=== PATIENT | female | born 1985 | race African-American/Black ===

== ENCOUNTER 2017-02-02 13:11 | Emergency (ER) | payer SELFPAY ==
[~2017-02-02] VITALS: Ht 170.2 cm; Wt 58.0 kg
[2017-02-02 13:14] VITALS: BP 137/69; PULSE 81; RESP 18; TEMP 97.4; O2SAT 98
--- NOTE | 2017-02-02 14:41 | PD ---
HPI Chief Complaint: Psychiatric Symptoms Time Seen by Provider: 14:06 Travel History International Travel<30 days: No Contact w/Intl Traveler<30days: No Traveled to known affect area: No History of Present Illness HPI This is a 31-year-old female that was apparently brought in by her family for psychiatric evaluation. According to the triage note,"Pt presents for a psych evaluation. She states she is off her medications. Pt is agitated, family states she is "going crazy". Hx of mental illness, suicide attempt. Family reports hallucinations. Talks to herself, reaches for things that aren't there. Pt has a hx of schizophrenia. She denies suicidality now." I evaluated the patient and she denies suicidal or homicidal ideations. Denies auditory or visual hallucinations. Denies illicit drug use. Reports occasional alcohol use and occasional tobacco use. History of schizophrenia. Says she's been off her medications for 2 months. Says she's been having trouble concentrating and cannot focus and she wants to get back on her medications. She has no emergent medical complaints at this time. No known relieving or aggravating factors. Duration unknown. No primary care provider. No other modifying factors or associated signs and symptoms. PFSH Past Medical History Medical History: Denies Significant Hx Diminished Hearing: No Immunizations Current: Yes Tetanus Vaccination: > 5 Years Influenza Vaccination: No ?: Not LMP: at end of month per patient Menopausal: No : 0 Past Surgical History Surgical History: No Previous Surgery Social History Alcohol Use: Yes (1 beer or a glass of wine on weekend occassionally) Tobacco Use: No Substance Use: No Allergies-Medications (Allergen,Severity, Reaction): Coded Allergies: No Known Allergies (Verified Allergy, Unknown, 02/02/17) Per Patient Reported Meds & Prescriptions Reported Meds & Active Scripts Active Vistaril (Hydroxyzine Pamoate) 50 Mg Cap 50 Mg PO BID 14 Days Review of Systems Except as stated in HPI: all other systems reviewed are Neg Physical Exam Narrative GENERAL: Well-nourished, well-developed black female patient, in no acute distress SKIN: Warm and dry. HEAD: Atraumatic. Normocephalic. EYES: Pupils equal and round. ENT: Mucosa pink and moist. NECK: Supple. Trachea midline. CARDIOVASCULAR: Regular rate and rhythm. No murmur appreciated. RESPIRATORY: No accessory muscle use. Clear to auscultation. Breath sounds equal bilaterally. GASTROINTESTINAL: Abdomen soft, non-tender, nondistended. Hepatic and splenic margins not palpable. Bowel sounds are active 4 quadrants. MUSCULOSKELETAL: No obvious deformities. No clubbing. No cyanosis. No edema. BACK: No CVA tenderness. NEUROLOGICAL: Awake and alert. Oriented 3. No obvious cranial nerve deficits. Motor grossly within normal limits. Normal speech. Moves all extremities. 5/5 strength to all extremities. PSYCHIATRIC: Flat affect. No delusional thought processes. No hallucinations. Data Data Last Documented VS Vital Signs Date Time Temp Pulse Resp B/P (MAP) Pulse Ox O2 Delivery O2 Flow Rate FiO2 02/02/17 20:27 02/02/17 17:20 73 20 Room Air 02/02/17 13:14 97.4 98 Orders Orders Complete Blood Count With Diff (02/02/17 14:05) Comprehensive Metabolic Panel (02/02/17 14:05) Urinalysis - C+S If Indicated (02/02/17 14:05) Ed Urine Pregnancytest Poc (02/02/17 14:05) Psych Screen (02/02/17 14:05) Drug Screen, Random Urine (02/02/17 14:05) Alcohol (Ethanol) (02/02/17 14:05) Salicylates (Aspirin) (02/02/17 14:05) Tylenol (Acetaminophen) (02/02/17 14:05) Diet Regular Basic (02/02/17 Dinner) Ed Discharge Order (02/02/17 20:04) Labs Laboratory Tests Test 02/02/17 15:10 02/02/17 19:10 White Blood Count 8.6 TH/MM3 Red Blood Count 5.27 MIL/MM3 Hemoglobin 11.6 GM/DL Hematocrit 35.7 % Mean Corpuscular Volume 67.8 FL Mean Corpuscular Hemoglobin 22.1 PG Mean Corpuscular Hemoglobin Concent 32.6 % Red Cell Distribution Width 15.8 % Platelet Count 184 TH/MM3 Mean Platelet Volume 10.1 FL Neutrophils (%) (Auto) 56.3 % Lymphocytes (%) (Auto) 29.6 % Monocytes (%) (Auto) 11.4 % Eosinophils (%) (Auto) 2.2 % Basophils (%) (Auto) 0.5 % Neutrophils # (Auto) 4.8 TH/MM3 Lymphocytes # (Auto) 2.5 TH/MM3 Monocytes # (Auto) 1.0 TH/MM3 Eosinophils # (Auto) 0.2 TH/MM3 Basophils # (Auto) 0.0 TH/MM3 CBC Comment DIFF FINAL Differential Comment Blood Urea Nitrogen 13 MG/DL Creatinine 0.75 MG/DL Random Glucose 74 MG/DL Total Protein 7.6 GM/DL Albumin 3.8 GM/DL Calcium Level 8.9 MG/DL Alkaline Phosphatase 81 U/L Aspartate Amino Transf (AST/SGOT) 19 U/L Alanine Aminotransferase (ALT/SGPT) 43 U/L Total Bilirubin 0.2 MG/DL Sodium Level 141 MEQ/L Potassium Level 4.1 MEQ/L Chloride Level 109 MEQ/L Carbon Dioxide Level 27.8 MEQ/L Anion Gap 4 MEQ/L Estimat Glomerular Filtration Rate 91 ML/MIN Salicylates Level LESS THAN 1.7 MG/DL Acetaminophen Level LESS THAN 2.0 MCG/ML Ethyl Alcohol Level LESS THAN 3 MG/DL Urine Color COLORLESS Urine Turbidity CLEAR Urine pH 6.5 Urine Specific [place] 1.001 Urine Protein NEG mg/dL Urine Glucose (UA) NEG mg/dL Urine Ketones NEG mg/dL Urine Occult Blood NEG Urine Nitrite NEG Urine Bilirubin NEG Urine Urobilinogen LESS THAN 2.0 MG/DL Urine Leukocyte Esterase NEG Urine RBC LESS THAN 1 /hpf Urine WBC LESS THAN 1 /hpf Urine Squamous Epithelial Cells <1 /hpf Microscopic Urinalysis Comment CULT NOT INDICATED Urine Opiates Screen NEG Urine Barbiturates Screen NEG Urine Amphetamines Screen NEG Urine Benzodiazepines Screen NEG Urine Cocaine Screen NEG Urine Cannabinoids Screen NEG [facility] Medical Decision Making Medical Screen Exam Complete: Yes Emergency Medical Condition: Yes Medical Record Reviewed: Yes Differential Diagnosis Psychosis, schizophrenia, medical clearance for psychiatric admission Narrative Course Patient presents voluntarily. Physical examination and vital signs are essentially unremarkable. Patient has no medical complaints to report. Psych screen has been ordered. If the laboratory results are unremarkable, the patient will be medically cleared for psychiatric evaluation and disposition. Diagnosis Primary Impression: Medical clearance for psychiatric admission Scripts Hydroxyzine Pamoate (Vistaril) 50 Mg Cap 50 MG PO BID for Anxiety and/or Insomnia for 14 Days, #28 CAP 0 Refills Prov: Mel Spangler [facility] 02/02/17 Condition: Stable Chastity Bradford [facility] Feb 02, 2017 14:41
[2017-02-02 15:43] LABS: AUTOMATED NEUTROPHIL # 4.8 TH/MM3 (1.8-7.7); BASOPHIL % 0.5 % (0.0-2.0); EOSINOPHIL # 0.2 TH/MM3 (0-0.4); EOSINOPHIL % 2.2 % (0.0-4.0); HEMATOCRIT 35.7 % (35.0-46.0); HEMOGLOBIN 11.6 GM/DL (11.6-15.3); LYMPH % 29.6 % (9.0-44.0); LYMPHOCYTE # 2.5 TH/MM3 (1.0-4.8); MEAN CELL VOLUME 67.8 FL (80.0-100.0); MEAN CORPUSCULAR HEMOGLOBIN 22.1 PG (27.0-34.0); MEAN CORPUSCULAR HGB CONC 32.6 % (32.0-36.0); MEAN PLATELET VOLUME 10.1 FL (7.0-11.0); MONO % 11.4 % (0.0-8.0); NEUT % 56.3 % (16.0-70.0); PLATELET COUNT 184 TH/MM3 (150-450); RED BLOOD COUNT 5.27 MIL/MM3 (4.00-5.30); RED CELL DISTRIBUTION WIDTH 15.8 % (11.6-17.2); WHITE BLOOD COUNT 8.6 TH/MM3 (4.0-11.0)
[2017-02-02 15:52] LABS: ALBUMIN 3.8 GM/DL (3.4-5.0); ALKALINE PHOSPHATASE 81 U/L (45-117); ALT (GPT) 43 U/L (10-53); AST (GOT) 19 U/L (15-37); BICARBONATE 27.8 MEQ/L (21.0-32.0); BLOOD UREA NITROGEN 13 MG/DL (7-18); CALCIUM 8.9 MG/DL (8.5-10.1); CHLORIDE 109 MEQ/L (98-107); CREATININE 0.75 MG/DL (0.50-1.00); GLOMERULAR FILTRATION RATE 91 ML/MIN (>89); GLUCOSE,RANDOM 74 MG/DL (74-106); SODIUM (NA) 141 MEQ/L (136-145); TOTAL BILIRUBIN ADULT 0.2 MG/DL (0.2-1.0); TOTAL PROTEIN 7.6 GM/DL (6.4-8.2)
[2017-02-02 16:00] LABS: ACETAMINOPHEN LESS THAN 2.0 MCG/ML (10.0-30.0)
[2017-02-02 17:20] VITALS: BP 117/67; PULSE 73; RESP 20
[2017-02-02 19:47] LABS: BILIRUBIN, URINE NEG (NEG); BLOOD, URINE NEG (NEG); GLUCOSE,URINE NEG (NEG); KETONE, URINE NEG (NEG); NITRITE,URINE NEG (NEG); PH, URINE 6.5 (5.0-8.5); SQUAMOUS EPITHELIAL CELL URINE <1 /hpf (0-5); URINE COLOR COLORLESS (YELLW/STRAW); URINE LEUKOCYTE ESTERASE NEG (NEG)
--- NOTE | 2017-02-02 20:04 | PD ---
Physical Exam Date Seen by Provider: Feb 02, 2017 Time Seen by Provider: 20:03 Data Data Last Documented VS Vital Signs Date Time Temp Pulse Resp B/P (MAP) Pulse Ox O2 Delivery O2 Flow Rate FiO2 02/02/17 17:20 73 20 117/67 (84) Room Air 02/02/17 13:14 97.4 98 Orders Orders Complete Blood Count With Diff (02/02/17 14:05) Comprehensive Metabolic Panel (02/02/17 14:05) Urinalysis - C+S If Indicated (02/02/17 14:05) Ed Urine Pregnancytest Poc (02/02/17 14:05) Psych Screen (02/02/17 14:05) Drug Screen, Random Urine (02/02/17 14:05) Alcohol (Ethanol) (02/02/17 14:05) Salicylates (Aspirin) (02/02/17 14:05) Tylenol (Acetaminophen) (02/02/17 14:05) Diet Regular Basic (02/02/17 Dinner) Labs Laboratory Tests Test 02/02/17 15:10 02/02/17 19:10 White Blood Count 8.6 TH/MM3 Red Blood Count 5.27 MIL/MM3 Hemoglobin 11.6 GM/DL Hematocrit 35.7 % Mean Corpuscular Volume 67.8 FL Mean Corpuscular Hemoglobin 22.1 PG Mean Corpuscular Hemoglobin Concent 32.6 % Red Cell Distribution Width 15.8 % Platelet Count 184 TH/MM3 Mean Platelet Volume 10.1 FL Neutrophils (%) (Auto) 56.3 % Lymphocytes (%) (Auto) 29.6 % Monocytes (%) (Auto) 11.4 % Eosinophils (%) (Auto) 2.2 % Basophils (%) (Auto) 0.5 % Neutrophils # (Auto) 4.8 TH/MM3 Lymphocytes # (Auto) 2.5 TH/MM3 Monocytes # (Auto) 1.0 TH/MM3 Eosinophils # (Auto) 0.2 TH/MM3 Basophils # (Auto) 0.0 TH/MM3 CBC Comment DIFF FINAL Differential Comment Blood Urea Nitrogen 13 MG/DL Creatinine 0.75 MG/DL Random Glucose 74 MG/DL Total Protein 7.6 GM/DL Albumin 3.8 GM/DL Calcium Level 8.9 MG/DL Alkaline Phosphatase 81 U/L Aspartate Amino Transf (AST/SGOT) 19 U/L Alanine Aminotransferase (ALT/SGPT) 43 U/L Total Bilirubin 0.2 MG/DL Sodium Level 141 MEQ/L Potassium Level 4.1 MEQ/L Chloride Level 109 MEQ/L Carbon Dioxide Level 27.8 MEQ/L Anion Gap 4 MEQ/L Estimat Glomerular Filtration Rate 91 ML/MIN Salicylates Level LESS THAN 1.7 MG/DL Acetaminophen Level LESS THAN 2.0 MCG/ML Ethyl Alcohol Level LESS THAN 3 MG/DL Urine Color COLORLESS Urine Turbidity CLEAR Urine pH 6.5 Urine Specific [place] 1.001 Urine Protein NEG mg/dL Urine Glucose (UA) NEG mg/dL Urine Ketones NEG mg/dL Urine Occult Blood NEG Urine Nitrite NEG Urine Bilirubin NEG Urine Urobilinogen LESS THAN 2.0 MG/DL Urine Leukocyte Esterase NEG Urine RBC LESS THAN 1 /hpf Urine WBC LESS THAN 1 /hpf Urine Squamous Epithelial Cells <1 /hpf Microscopic Urinalysis Comment CULT NOT INDICATED Urine Opiates Screen NEG Urine Barbiturates Screen NEG Urine Amphetamines Screen NEG Urine Benzodiazepines Screen NEG Urine Cocaine Screen NEG Urine Cannabinoids Screen NEG [facility] Medical Record Reviewed: Yes Supervised Visit with MANOJ: No Interpretation(s) Laboratory Tests Test 02/02/17 15:10 02/02/17 19:10 White Blood Count 8.6 TH/MM3 Red Blood Count 5.27 MIL/MM3 Hemoglobin 11.6 GM/DL Hematocrit 35.7 % Mean Corpuscular Volume 67.8 FL Mean Corpuscular Hemoglobin 22.1 PG Mean Corpuscular Hemoglobin Concent 32.6 % Red Cell Distribution Width 15.8 % Platelet Count 184 TH/MM3 Mean Platelet Volume 10.1 FL Neutrophils (%) (Auto) 56.3 % Lymphocytes (%) (Auto) 29.6 % Monocytes (%) (Auto) 11.4 % Eosinophils (%) (Auto) 2.2 % Basophils (%) (Auto) 0.5 % Neutrophils # (Auto) 4.8 TH/MM3 Lymphocytes # (Auto) 2.5 TH/MM3 Monocytes # (Auto) 1.0 TH/MM3 Eosinophils # (Auto) 0.2 TH/MM3 Basophils # (Auto) 0.0 TH/MM3 CBC Comment DIFF FINAL Differential Comment Blood Urea Nitrogen 13 MG/DL Creatinine 0.75 MG/DL Random Glucose 74 MG/DL Total Protein 7.6 GM/DL Albumin 3.8 GM/DL Calcium Level 8.9 MG/DL Alkaline Phosphatase 81 U/L Aspartate Amino Transf (AST/SGOT) 19 U/L Alanine Aminotransferase (ALT/SGPT) 43 U/L Total Bilirubin 0.2 MG/DL Sodium Level 141 MEQ/L Potassium Level 4.1 MEQ/L Chloride Level 109 MEQ/L Carbon Dioxide Level 27.8 MEQ/L Anion Gap 4 MEQ/L Estimat Glomerular Filtration Rate 91 ML/MIN Salicylates Level LESS THAN 1.7 MG/DL Acetaminophen Level LESS THAN 2.0 MCG/ML Ethyl Alcohol Level LESS THAN 3 MG/DL Urine Color COLORLESS Urine Turbidity CLEAR Urine pH 6.5 Urine Specific [place] 1.001 Urine Protein NEG mg/dL Urine Glucose (UA) NEG mg/dL Urine Ketones NEG mg/dL Urine Occult Blood NEG Urine Nitrite NEG Urine Bilirubin NEG Urine Urobilinogen LESS THAN 2.0 MG/DL Urine Leukocyte Esterase NEG Urine RBC LESS THAN 1 /hpf Urine WBC LESS THAN 1 /hpf Urine Squamous Epithelial Cells <1 /hpf Microscopic Urinalysis Comment CULT NOT INDICATED Urine Opiates Screen NEG Urine Barbiturates Screen NEG Urine Amphetamines Screen NEG Urine Benzodiazepines Screen NEG Urine Cocaine Screen NEG Urine Cannabinoids Screen NEG Differential Diagnosis MDM: High Differential diagnoses: Schizophrenia, schizoaffective disorder, bipolar, anxiety, depression, adjustment reaction, mood disorder NOS, ODD, depressive disorder NOS, dementia, dementia with agitation, psychosis NOS, substance induced mood disorder, DMDD, Asperger syndrome, infection,electrolyte abnormality, malingering. Narrative Course The patient been medically cleared. The patient has been evaluated by the psych nurse practitioner. The patient is considered medically stable for discharge. The patient does not meet inpatient treatment. The patient is given outpatient treatment information. Diagnosis Primary Impression: Medical clearance for psychiatric admission Patient Instructions: General Instructions Additional Instruction: Rest. Follow-up the recommendations of the psych nurse practitioner. Med/Other Pt SpecificInfo: No Meds Exist/No RX given Scripts No Active Prescriptions or Reported Meds Disposition: 01 DISCHARGE HOME Condition: Stable Jigar Vasquez Feb 02, 2017 20:04
[2017-02-02] MEDS ORDERED: VIST50CA PO (20:11)
== END 2017-02-02 20:20 | disposition home or self-care (01) ==
LOC: NEPJ 13:11
DX: F20.9 Schizophrenia, unspecified (principal); Z72.0 Tobacco use
CPT/HCPCS: 80053; 80307; 81001; 85025; 99283

== ENCOUNTER 2017-04-05 15:23 | Emergency (ER) | payer OTHER ==
[~2017-04-05] VITALS: Ht 170.2 cm; Wt 60.0 kg
[~2017-04-05 15:23] MED LIST: VIST50CA PO
[2017-04-05 15:27] VITALS: BP 118/76; PULSE 85; RESP 18; TEMP 98.2; O2SAT 97
[2017-04-05 17:15] LABS: ALBUMIN 4.5 GM/DL (3.4-5.0); AST (GOT) 17 U/L (15-37); AUTOMATED NEUTROPHIL # 5.4 TH/MM3 (1.8-7.7); BASOPHIL # 0.1 TH/MM3 (0-0.2); BASOPHIL % 0.8 % (0.0-2.0); BICARBONATE 23.2 MEQ/L (21.0-32.0); BLOOD UREA NITROGEN 10 MG/DL (7-18); CALCIUM 9.8 MG/DL (8.5-10.1); CHLORIDE 103 MEQ/L (98-107); CREATININE 0.85 MG/DL (0.50-1.00); EOSINOPHIL # 0.1 TH/MM3 (0-0.4); EOSINOPHIL % 0.9 % (0.0-4.0); GLOMERULAR FILTRATION RATE 96 ML/MIN (>89); GLUCOSE,RANDOM 72 MG/DL (74-106); HEMATOCRIT 36.9 % (35.0-46.0); HEMOGLOBIN 12.7 GM/DL (11.6-15.3); LYMPH % 29.2 % (9.0-44.0); LYMPHOCYTE # 2.5 TH/MM3 (1.0-4.8); MEAN CELL VOLUME 67.4 FL (80.0-100.0); MEAN CORPUSCULAR HEMOGLOBIN 23.2 PG (27.0-34.0); MEAN CORPUSCULAR HGB CONC 34.5 % (32.0-36.0); MONO % 6.8 % (0.0-8.0); MONOCYTE # 0.6 TH/MM3 (0-0.9); NEUT % 62.3 % (16.0-70.0); PLATELET COUNT 212 TH/MM3 (150-450); RED BLOOD COUNT 5.47 MIL/MM3 (4.00-5.30); RED CELL DISTRIBUTION WIDTH 14.8 % (11.6-17.2); SODIUM (NA) 137 MEQ/L (136-145); WHITE BLOOD COUNT 8.7 TH/MM3 (4.0-11.0)
[2017-04-05 17:16] LABS: ALT (GPT) 32 U/L (10-53)
[2017-04-05 17:19] LABS: ALKALINE PHOSPHATASE 78 U/L (45-117); TOTAL BILIRUBIN ADULT 0.5 MG/DL (0.2-1.0); TOTAL PROTEIN 8.4 GM/DL (6.4-8.2)
--- NOTE | 2017-04-05 17:44 | PD ---
HPI Chief Complaint: Psychiatric Symptoms Time Seen by Provider: 17:29 Travel History International Travel<30 days: No Contact w/Intl Traveler<30days: No Traveled to known affect area: No History of Present Illness HPI 31-year-old -[place] female comes in voluntarily with suicidal ideation , and admitting to confused thoughts. Patient states she was on medication but stopped taking it 6 months ago. Since since her thoughts have become more erratic and confused. She denies any medical issues other than recurrent back pain. She is requesting hydrocodone for this. She states no other acute issues. She has no known drug allergies. PFSH Past Medical History Diminished Hearing: No Immunizations Current: Yes Menopausal: No : 0 Social History Alcohol Use: Yes (1 beer or a glass of wine on weekend occassionally) Tobacco Use: No Substance Use: No Allergies-Medications (Allergen,Severity, Reaction): Coded Allergies: No Known Allergies (Verified Allergy, Unknown, 04/05/17) Per Patient Reported Meds & Prescriptions Reported Meds & Active Scripts Active Vistaril (Hydroxyzine Pamoate) 50 Mg Cap 50 Mg PO BID 14 Days Review of Systems Except as stated in HPI: all other systems reviewed are Neg General / Constitutional: No: Fever Eyes: No: Visual changes HENT: No: Headaches Cardiovascular: No: Chest Pain or Discomfort Respiratory: No: Shortness of Breath Gastrointestinal: No: Abdominal Pain Genitourinary: No: Dysuria Musculoskeletal: Positive: Myalgias, No: Pain Skin: No Rash Neurologic: No: Weakness Psychiatric: No: Depression Endocrine: No: Polydipsia Hematologic/Lymphatic: No: Easy Bruising Physical Exam Narrative GENERAL: Patient appears anxious with somewhat pressured speech, otherwise in no acute distress. SKIN: Warm and dry. Normal color. Normal turgor. HEAD: Atraumatic. Normocephalic. EYES: Pupils equal and round. No scleral icterus. No injection or drainage. ENT: No nasal bleeding or discharge. Mucous membranes pink and moist. Pharynx is clear. Airways patent NECK: Trachea midline. Supple and nontender CARDIOVASCULAR: Regular rate and rhythm. RESPIRATORY: No accessory muscle use. Clear to auscultation. Breath sounds equal bilaterally. GASTROINTESTINAL: Abdomen soft, non-tender, nondistended. Hepatic and splenic margins not palpable. MUSCULOSKELETAL: Extremities without clubbing, cyanosis, or edema. No obvious deformities. NEUROLOGICAL: Awake and alert. No obvious cranial nerve deficits. Motor grossly within normal limits. Five out of 5 muscle strength in the arms and legs. Pressure speech. Data Data Last Documented VS Vital Signs Date Time Temp Pulse Resp B/P (MAP) Pulse Ox O2 Delivery O2 Flow Rate FiO2 04/05/17 15:27 98.2 85 18 118/76 (90) 97 Orders Orders Complete Blood Count With Diff (04/05/17 16:19) Comprehensive Metabolic Panel (04/05/17 16:19) Psych Screen (04/05/17 16:19) Drug Screen, Random Urine (04/05/17 16:19) Diet Regular Basic (04/05/17 Dinner) Labs Laboratory Tests Test 04/05/17 16:33 White Blood Count 8.7 TH/MM3 Red Blood Count 5.47 MIL/MM3 Hemoglobin 12.7 GM/DL Hematocrit 36.9 % Mean Corpuscular Volume 67.4 FL Mean Corpuscular Hemoglobin 23.2 PG Mean Corpuscular Hemoglobin Concent 34.5 % Red Cell Distribution Width 14.8 % Platelet Count 212 TH/MM3 Mean Platelet Volume 10.0 FL Neutrophils (%) (Auto) 62.3 % Lymphocytes (%) (Auto) 29.2 % Monocytes (%) (Auto) 6.8 % Eosinophils (%) (Auto) 0.9 % Basophils (%) (Auto) 0.8 % Neutrophils # (Auto) 5.4 TH/MM3 Lymphocytes # (Auto) 2.5 TH/MM3 Monocytes # (Auto) 0.6 TH/MM3 Eosinophils # (Auto) 0.1 TH/MM3 Basophils # (Auto) 0.1 TH/MM3 CBC Comment DIFF FINAL Differential Comment Blood Urea Nitrogen 10 MG/DL Creatinine 0.85 MG/DL Random Glucose 72 MG/DL Total Protein 8.4 GM/DL Albumin 4.5 GM/DL Calcium Level 9.8 MG/DL Alkaline Phosphatase 78 U/L Aspartate Amino Transf (AST/SGOT) 17 U/L Alanine Aminotransferase (ALT/SGPT) 32 U/L Total Bilirubin 0.5 MG/DL Sodium Level 137 MEQ/L Potassium Level 3.6 MEQ/L Chloride Level 103 MEQ/L Carbon Dioxide Level 23.2 MEQ/L Anion Gap 11 MEQ/L Estimat Glomerular Filtration Rate 96 ML/MIN MDM Medical Decision Making Medical Screen Exam Complete: Yes Emergency Medical Condition: Yes Medical Record Reviewed: Yes Differential Diagnosis Anxiety. Schizophrenia. Suicidal ideation Narrative Course Labs ordered per psychiatric protocol. Patient is medically stable for psychiatric evaluation Diagnosis Primary Impression: Medical clearance for psychiatric admission Condition: Stable Ryan Velasco Apr 05, 2017 17:44
[2017-04-05 19:30] VITALS: BP 112/68; PULSE 77; RESP 18; O2SAT 99
[2017-04-06 02:12] VITALS: BP 113/71; PULSE 70; RESP 16; O2SAT 99
[2017-04-06 06:31] VITALS: BP 109/56; PULSE 66; RESP 16; O2SAT 99
[2017-04-06 10:05] VITALS: BP 108/55; PULSE 86; RESP 20
--- NOTE | 2017-04-06 11:29 | PD ---
History of Present Illness Chief Complaint: Psychiatric Symptoms Time Seen by Provider: 11:15 Travel History International Travel<30 Days: No Contact w/Intl Traveler<30days: No Known affected area: No Legal Status Legal Status: Voluntary History of Present Illness: History of Present Illness HPI 31-year-old -Danish female with reported history of depression and anxiety who resents to [facility] ED voluntarily requesting a psychiatric evaluation. The patient reported to ED provider that she was experiencing " suicidal ideation and confused thoughts, that she was previously on medication but stopped taking it 6 months ago and that since her thoughts had been more erratic and confused ". Electronic medical record is reviewed. The patient was last evaluated in the emergency department February 02, 2017 with very similar complaints. Lab work was reviewed. Toxicology is negative for any substances. The patient was monitored in secure environment in [facility] for extended period time and presented no behavioral concerns. She has slept well and has been eating well. Patient is seen. She is asleep but awakens easily. She is alert, oriented, dressed in [facility] and is maintaining basic hygiene and grooming. Her eye contact is poor. Mood is euthymic Her speech is clear, logical. Her answers tend to be vague and evasive. She does not appear internally stimulated. No other symptoms of psychosis, no paranoia, no delusions. No julia or hypomania. She reports that she came to the hospital because " like I feel really sick, hearing voices, trying to kill myself, confused, disoriented, leaving the stove on". When asked what her goals for treatment she states "to get better, to get on disability, to find a place to stay for about a month, and to be discharged to an apartment or another facility since I can't go back to where I was staying. Patient also asked me to have her medical records sent to [employer] as she has started a disability application. She does not verbalize any other symptoms or concerns. The patient does not present any suicidal ideation, intent nor plan. In terms of treatment she does not provide any reason for having stopped her medication. PFSH Past Medical History Diminished Hearing: No Psychiatric: Yes (schizoaffective d/o) Immunizations Current: Yes Schizophrenia: Yes (schizoaffective) Tetanus Vaccination: Unknown ?: Unknown LMP: 04/05/17 Menopausal: No : 4 Para: 0 Miscarriage: 4 Past Surgical History Surgical History: No Previous Surgery Psychiatric History Psychiatric History Hx Psychiatric Treatment: Reports treatmetn at [facility] with last appointmetn 7 months ago. Also reports Ed visitto [facility] 6 months ago. No previous suicide attempt. History of Inpatient Treatment: Yes Guns or firearms in home: No Social History female. Currently homeless. Had been living with her parents or with friends. 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 According to previous psychiatric screening she reported she has a healthcare administration degree from [employer]. Hx Alcohol Use: No Hx Tobacco Use: No Hx Substance Use: No Other Substances Used: occasional wine or beer Hx of Substance Use Treatment: No Family Psychiatric History Negative Allergies-Medications (Allergen,Severity, Reaction): Coded Allergies: No Known Allergies (Verified Allergy, Unknown, 04/05/17) Per Patient Reported Meds & Prescriptions Reported Meds & Active Scripts Active Vistaril (Hydroxyzine Pamoate) 50 Mg Cap 50 Mg PO BID 14 Days Review of Systems Musculoskeletal: COMPLAINS OF: Back pain Mental Status Examination Appearance: Appropriate (wearing [facility]) Consciousness: Alert Orientation: x4 Motor Activity: Normal gait Speech: Hesitant, Slow Language: Adequate Fund of Knowledge: Adequate Attention and Concentration: Inadequate (does not appear 100% vested in an evaluation) Memory: Impaired (her responses are vague and superficial) Mood: Appropriate Affect: Blunt Thought Process & Associations: Intact, Logical, Goal directed Thought Content: Appropriate Hallucination Type: None Delusion Type: None Suicidal Ideation: No Suicidal Plan: No Suicidal Intention: No Homicidal Ideation: No Homicidal Plan: No Homicidal Intention: No Insight: Poor Judgment: Adequate MDM Medical Decision Making Medical Record Reviewed: Yes Assessment/Plan 31-year-old female with self reported history of depression and anxiety who presents to the ED on a voluntary basis requesting a psychiatric evaluation and reporting to ED provider that she was suicidal having suicidal thoughts and confusion. The patient also reported that she has been off her medications for about 7 months. The patient was monitored in secure environment and presented no behavioral concerns and presented no suicidality. She did not appear to be responding to internal stimuli and did not exhibit any other symptom of psychosis. Upon evaluation today she is requesting to have at least a month admission to this hospital, request help getting on disability, as well as wanting to get better. Patient also requesting help in finding an apartment upon her expected admission to the hospital. She also requests to have her medical records sent to [employer] for her disability determination. I have asked our case checker Ryan to meet with her and provide her the referrals for outpatient services as well as for local housing assistance. This patient does not meet criteria at this time for inpatient psychiatric treatment. No risk for imminent danger to self or others as she is future oriented with very specific goals. I will however provide her a small prescription for this I tell primary which she states has helped her in the past and will refer to [facility]. Although she may in fact have issues with anxiety or depression there is also a strong suspicion that she may be presenting here to the ED to bolster her disability application. Psychiatrically clear for discharge from ED. Orders Orders Complete Blood Count With Diff (04/05/17 16:19) Comprehensive Metabolic Panel (04/05/17 16:19) Psych Screen (04/05/17 16:19) Drug Screen, Random Urine (04/05/17 16:19) Diet Regular Basic (04/05/17 Dinner) Diet Regular Basic (04/06/17 Breakfast) Diet Regular Basic (04/06/17 Lunch) Results Vital Signs Date Time Temp Pulse Resp B/P (MAP) Pulse Ox O2 Delivery O2 Flow Rate FiO2 04/06/17 11:09 04/06/17 10:05 86 20 108/55 (72) Room Air 04/06/17 06:31 66 16 109/56 (73) 99 Room Air 04/06/17 02:12 70 16 113/71 (85) 99 Room Air 04/05/17 19:30 77 18 112/68 (83) 99 Room Air 04/05/17 15:27 98.2 85 18 118/76 (90) 97 Laboratory Tests Test 04/05/17 16:33 04/05/17 19:50 White Blood Count 8.7 Red Blood Count 5.47 Hemoglobin 12.7 Hematocrit 36.9 Mean Corpuscular Volume 67.4 Mean Corpuscular Hemoglobin 23.2 Mean Corpuscular Hemoglobin Concent 34.5 Red Cell Distribution Width 14.8 Platelet Count 212 Mean Platelet Volume 10.0 Neutrophils (%) (Auto) 62.3 Lymphocytes (%) (Auto) 29.2 Monocytes (%) (Auto) 6.8 Eosinophils (%) (Auto) 0.9 Basophils (%) (Auto) 0.8 Neutrophils # (Auto) 5.4 Lymphocytes # (Auto) 2.5 Monocytes # (Auto) 0.6 Eosinophils # (Auto) 0.1 Basophils # (Auto) 0.1 CBC Comment DIFF FINAL Differential Comment Blood Urea Nitrogen 10 Creatinine 0.85 Random Glucose 72 Total Protein 8.4 Albumin 4.5 Calcium Level 9.8 Alkaline Phosphatase 78 Aspartate Amino Transf (AST/SGOT) 17 Alanine Aminotransferase (ALT/SGPT) 32 Total Bilirubin 0.5 Sodium Level 137 Potassium Level 3.6 Chloride Level 103 Carbon Dioxide Level 23.2 Anion Gap 11 Estimat Glomerular Filtration Rate 96 Urine Opiates Screen NEG Urine Barbiturates Screen NEG Urine Amphetamines Screen NEG Urine Benzodiazepines Screen NEG Urine Cocaine Screen NEG Urine Cannabinoids Screen NEG Diagnosis Primary Impression: Adjustment disorder Psychiatrically Cleared: Yes Departure Forms: Tests/Procedures Patient Instructions: General Instructions Additional Instructions: Follow up with Primary Care physician. Follow up with Psychiatry as needed. Return if symptoms worsen. Med/ Other Pt Specific Info: Prescription(s) given Prescriptions Citalopram (Citalopram) 10 Mg Tab 10 MG PO DAILY for Control Depression, #30 TAB 0 Refills Prov: Mel Spangler 04/06/17 Disposition: 01 DISCHARGE HOME Condition: Stable Problem Qualifiers Primary Impression: Adjustment disorder Qualified Codes: F43.23 - Adjustment disorder with mixed anxiety and depressed mood Mel Spangler Apr 06, 2017 11:29
[2017-04-06] MEDS ORDERED: CITA10TA4 PO (12:06)
--- NOTE | 2017-04-06 12:41 | PD ---
Physical Exam Date Seen by Provider: Apr 06, 2017 Time Seen by Provider: 12:40 Narrative 31-year-old female previously medically cleared for psychiatric evaluation, has been seen by psychiatric staff and deemed psychiatrically stable for discharge. Patient maintains medical clearance at this time. Follow -up is based on psychiatric note. Data Data Last Documented VS Vital Signs Date Time Temp Pulse Resp B/P (MAP) Pulse Ox O2 Delivery O2 Flow Rate FiO2 04/06/17 10:05 86 20 108/55 (72) Room Air 04/06/17 06:31 99 04/05/17 15:27 98.2 Orders Orders Complete Blood Count With Diff (04/05/17 16:19) Comprehensive Metabolic Panel (04/05/17 16:19) Psych Screen (04/05/17 16:19) Drug Screen, Random Urine (04/05/17 16:19) Diet Regular Basic (04/05/17 Dinner) Diet Regular Basic (04/06/17 Breakfast) Diet Regular Basic (04/06/17 Lunch) Ed Urine Pregnancytest Poc (04/06/17 12:25) Labs Laboratory Tests Test 04/05/17 16:33 04/05/17 19:50 White Blood Count 8.7 TH/MM3 Red Blood Count 5.47 MIL/MM3 Hemoglobin 12.7 GM/DL Hematocrit 36.9 % Mean Corpuscular Volume 67.4 FL Mean Corpuscular Hemoglobin 23.2 PG Mean Corpuscular Hemoglobin Concent 34.5 % Red Cell Distribution Width 14.8 % Platelet Count 212 TH/MM3 Mean Platelet Volume 10.0 FL Neutrophils (%) (Auto) 62.3 % Lymphocytes (%) (Auto) 29.2 % Monocytes (%) (Auto) 6.8 % Eosinophils (%) (Auto) 0.9 % Basophils (%) (Auto) 0.8 % Neutrophils # (Auto) 5.4 TH/MM3 Lymphocytes # (Auto) 2.5 TH/MM3 Monocytes # (Auto) 0.6 TH/MM3 Eosinophils # (Auto) 0.1 TH/MM3 Basophils # (Auto) 0.1 TH/MM3 CBC Comment DIFF FINAL Differential Comment Blood Urea Nitrogen 10 MG/DL Creatinine 0.85 MG/DL Random Glucose 72 MG/DL Total Protein 8.4 GM/DL Albumin 4.5 GM/DL Calcium Level 9.8 MG/DL Alkaline Phosphatase 78 U/L Aspartate Amino Transf (AST/SGOT) 17 U/L Alanine Aminotransferase (ALT/SGPT) 32 U/L Total Bilirubin 0.5 MG/DL Sodium Level 137 MEQ/L Potassium Level 3.6 MEQ/L Chloride Level 103 MEQ/L Carbon Dioxide Level 23.2 MEQ/L Anion Gap 11 MEQ/L Estimat Glomerular Filtration Rate 96 ML/MIN Urine Opiates Screen NEG Urine Barbiturates Screen NEG Urine Amphetamines Screen NEG Urine Benzodiazepines Screen NEG Urine Cocaine Screen NEG Urine Cannabinoids Screen NEG MDM Medical Record Reviewed: Yes Supervised Visit with MANOJ: Yes Narrative Course 31-year-old female previously medically cleared for psychiatric evaluation, has been seen by psychiatric staff and deemed psychiatrically stable for discharge. Patient maintains medical clearance at this time. Follow -up is based on psychiatric note. Diagnosis Primary Impression: Borderline personality disorder Additional Impressions: Medical clearance for psychiatric admission Adjustment disorder Qualified Codes: F43.23 - Adjustment disorder with mixed anxiety and depressed mood Patient Instructions: General Instructions Departure Forms: Tests/Procedures Additional Instruction: Follow up with Primary Care physician. Follow up with Psychiatry as needed. Return if symptoms worsen. Scripts Citalopram (Citalopram) 10 Mg Tab 10 MG PO DAILY for Control Depression, #30 TAB 0 Refills Prov: Mel Spangler 04/06/17 Disposition: 01 DISCHARGE HOME Condition: Stable Ryan Velasco Apr 06, 2017 12:41
== END 2017-04-06 13:24 | disposition home or self-care (01) ==
LOC: NEPJ 15:23
DX: F60.3 Borderline personality disorder (principal); F43.23 Adjustment disorder with mixed anxiety and depressed mood; Z79.899 Other long term (current) drug therapy
CPT/HCPCS: 80053; 80307; 85025; 99283

== ENCOUNTER 2017-07-14 11:33 | Emergency (ER) | payer OTHER ==
[~2017-07-14] VITALS: Ht 170.2 cm; Wt 65.0 kg
[~2017-07-14 11:33] MED LIST changes: +CITA10TA4 PO
[2017-07-14 11:35] VITALS: BP 120/77; PULSE 79; RESP 20; TEMP 99.4; O2SAT 100
[2017-07-14] MEDS ORDERED: TRAZ50TA12 PO (11:52)
[2017-07-14] MEDS ORDERED: FLUO-1 PO (11:52)
--- NOTE | 2017-07-14 12:06 | PD ---
HPI Chief Complaint: Psychiatric Symptoms Time Seen by Provider: 11:52 Travel History International Travel<30 days: No Contact w/Intl Traveler<30days: No Traveled to known affect area: No History of Present Illness HPI 31-year-old female requesting psychiatric evaluation. Patient has mild confusion for the past week. Patient has history of schizophrenia and depression. Patient ran out of her medications a month ago. Patient states that she was on trazodone and Prozac. Patient denies any headache. Patient denies any chest pain or shortness of breath. Patient denies abdominal pain. Patient denies any dysuria frequency. Patient denies any fever chills. Patient denies alcohol or drug abuse. PFSH Past Medical History Anxiety: Yes Diminished Hearing: No Psychiatric: Yes (schizoaffective d/o) Immunizations Current: Yes Schizophrenia: Yes (schizoaffective) ?: Unknown LMP: 1 month ago Menopausal: No : 4 Para: 0 Miscarriage: 4 Past Surgical History Surgical History: No Previous Surgery Social History Alcohol Use: Yes (socially ) Tobacco Use: No Substance Use: No Allergies-Medications (Allergen,Severity, Reaction): Coded Allergies: No Known Allergies (Verified Allergy, Unknown, 04/05/17) Per Patient Reported Meds & Prescriptions Reported Meds & Active Scripts Active Vistaril (Hydroxyzine Pamoate) 50 Mg Cap 50 Mg PO BID 14 Days Reported Trazodone (Trazodone HCl) 50 Mg Tab 50 Mg PO HS Prozac (Fluoxetine HCl) 10 Mg Cap 10 Mg PO DAILY Review of Systems General / Constitutional: No: Fever Eyes: No: Visual changes HENT: No: Headaches Cardiovascular: No: Chest Pain or Discomfort Respiratory: No: Shortness of Breath Gastrointestinal: No: Abdominal Pain Genitourinary: No: Dysuria Musculoskeletal: No: Pain Skin: No Rash Neurologic: No: Weakness Psychiatric: No: Depression Endocrine: No: Polydipsia Hematologic/Lymphatic: No: Easy Bruising Physical Exam Narrative GENERAL: Well-nourished, well-developed patient. SKIN: Focused skin assessment warm/dry. HEAD: Normocephalic. EYES: No scleral icterus. No injection or drainage. NECK: Supple, trachea midline. No JVD or lymphadenopathy. CARDIOVASCULAR: Regular rate and rhythm without murmurs, gallops, or rubs. RESPIRATORY: Breath sounds equal bilaterally. No accessory muscle use. GASTROINTESTINAL: Abdomen soft, non-tender, nondistended. MUSCULOSKELETAL: No cyanosis, or edema. BACK: Nontender without obvious deformity. No CVA tenderness. Neurologic exam normal. Data Data Last Documented VS Vital Signs Date Time Temp Pulse Resp B/P (MAP) Pulse Ox O2 Delivery O2 Flow Rate FiO2 07/14/17 11:35 99.4 79 20 120/77 (91) 100 Orders Orders Complete Blood Count With Diff (07/14/17 11:59) Comprehensive Metabolic Panel (07/14/17 11:59) Thyroid Stimulating Hormone (07/14/17 11:59) Ed Urine Pregnancytest Poc (07/14/17 11:59) Psych Screen (07/14/17 11:59) Drug Screen, Random Urine (07/14/17 11:59) Labs Laboratory Tests Test 07/14/17 12:05 White Blood Count 6.1 TH/MM3 Red Blood Count 5.10 MIL/MM3 Hemoglobin 11.5 GM/DL Hematocrit 34.6 % Mean Corpuscular Volume 67.9 FL Mean Corpuscular Hemoglobin 22.5 PG Mean Corpuscular Hemoglobin Concent 33.2 % Red Cell Distribution Width 14.4 % Platelet Count 221 TH/MM3 Mean Platelet Volume 9.9 FL Neutrophils (%) (Auto) 59.1 % Lymphocytes (%) (Auto) 30.6 % Monocytes (%) (Auto) 8.4 % Eosinophils (%) (Auto) 1.4 % Basophils (%) (Auto) 0.5 % Neutrophils # (Auto) 3.6 TH/MM3 Lymphocytes # (Auto) 1.9 TH/MM3 Monocytes # (Auto) 0.5 TH/MM3 Eosinophils # (Auto) 0.1 TH/MM3 Basophils # (Auto) 0.0 TH/MM3 CBC Comment DIFF FINAL Differential Comment Blood Urea Nitrogen 6 MG/DL Creatinine 0.84 MG/DL Random Glucose 76 MG/DL Total Protein 7.4 GM/DL Albumin 3.7 GM/DL Calcium Level 8.7 MG/DL Alkaline Phosphatase 71 U/L Aspartate Amino Transf (AST/SGOT) 13 U/L Alanine Aminotransferase (ALT/SGPT) 26 U/L Total Bilirubin 0.4 MG/DL Sodium Level 141 MEQ/L Potassium Level 3.9 MEQ/L Chloride Level 109 MEQ/L Carbon Dioxide Level 23.9 MEQ/L Anion Gap 8 MEQ/L Estimat Glomerular Filtration Rate 97 ML/MIN Thyroid Stimulating Hormone 3rd Gen 0.923 uIU/ML Urine Opiates Screen NEG Urine Barbiturates Screen NEG Urine Amphetamines Screen NEG Urine Benzodiazepines Screen NEG Urine Cocaine Screen NEG Urine Cannabinoids Screen POS MDM Medical Decision Making Medical Screen Exam Complete: Yes Emergency Medical Condition: Yes Interpretation(s) 1327 PM. CBC with hemoglobin 11.5 hematocrit 34.6. MCV 67.9. CMP within normal limits. TSH normal. Urine drug screen positive for cannabis. Differential Diagnosis Differential diagnosis including schizophrenia, depression, adjustment disorder. Narrative Course 31-year-old female with history of schizophrenia and depression. Patient has been off her medication for the past month. Patient requesting psychiatric evaluation. 1328 PM. Patient is medically cleared for psychiatric evaluation and disposition. Aaron Plaza MD Jul 14, 2017 12:06
[2017-07-14 12:44] LABS: AUTOMATED NEUTROPHIL # 3.6 TH/MM3 (1.8-7.7); BASOPHIL % 0.5 % (0.0-2.0); EOSINOPHIL # 0.1 TH/MM3 (0-0.4); EOSINOPHIL % 1.4 % (0.0-4.0); HEMATOCRIT 34.6 % (35.0-46.0); HEMOGLOBIN 11.5 GM/DL (11.6-15.3); LYMPH % 30.6 % (9.0-44.0); LYMPHOCYTE # 1.9 TH/MM3 (1.0-4.8); MEAN CELL VOLUME 67.9 FL (80.0-100.0); MEAN CORPUSCULAR HEMOGLOBIN 22.5 PG (27.0-34.0); MEAN CORPUSCULAR HGB CONC 33.2 % (32.0-36.0); MEAN PLATELET VOLUME 9.9 FL (7.0-11.0); MONO % 8.4 % (0.0-8.0); MONOCYTE # 0.5 TH/MM3 (0-0.9); NEUT % 59.1 % (16.0-70.0); PLATELET COUNT 221 TH/MM3 (150-450); RED CELL DISTRIBUTION WIDTH 14.4 % (11.6-17.2); WHITE BLOOD COUNT 6.1 TH/MM3 (4.0-11.0)
[2017-07-14 13:00] LABS: ALBUMIN 3.7 GM/DL (3.4-5.0); ALT (GPT) 26 U/L (10-53); AST (GOT) 13 U/L (15-37); BICARBONATE 23.9 MEQ/L (21.0-32.0); BLOOD UREA NITROGEN 6 MG/DL (7-18); CALCIUM 8.7 MG/DL (8.5-10.1); CHLORIDE 109 MEQ/L (98-107); CREATININE 0.84 MG/DL (0.50-1.00); GLOMERULAR FILTRATION RATE 97 ML/MIN (>89); GLUCOSE,RANDOM 76 MG/DL (74-106); SODIUM (NA) 141 MEQ/L (136-145)
[2017-07-14 13:09] LABS: ALKALINE PHOSPHATASE 71 U/L (45-117); TOTAL BILIRUBIN ADULT 0.4 MG/DL (0.2-1.0); TOTAL PROTEIN 7.4 GM/DL (6.4-8.2)
== END 2017-07-14 13:44 | disposition left against medical advice (07) ==
LOC: NEPD 11:33 → NEPJ 13:44
DX: Z02.89 Encounter for other administrative examinations (principal); F25.9 Schizoaffective disorder, unspecified; F32.9 Major depressive disorder, single episode, unspecified; Z79.899 Other long term (current) drug therapy
CPT/HCPCS: 80053; 80307; 84443; 84703; 85025; 99283

== ENCOUNTER 2017-07-14 14:24 | Emergency (ER) | payer OTHER ==
[~2017-07-14] VITALS: Ht 170.2 cm; Wt 54.5 kg
[~2017-07-14 14:24] MED LIST changes: +FLUO-1 PO; +TRAZ50TA12 PO
[2017-07-14 14:27] VITALS: BP 147/61; PULSE 74; RESP 18; TEMP 98; O2SAT 99
[2017-07-14 14:30] VITALS: BP 131/74; PULSE 73; RESP 18; TEMP 98.6; O2SAT 100
--- NOTE | 2017-07-14 14:39 | PD ---
HPI Chief Complaint: Psychiatric Symptoms Time Seen by Provider: 14:38 Travel History International Travel<30 days: No Contact w/Intl Traveler<30days: No Traveled to known affect area: No History of Present Illness HPI 31-year-old female with history of schizophrenia and bipolar, presents emergency department for psychiatric evaluation. Patient states she has been out of her medications. She states she has been hearing voices. She has been having suicidal thoughts. She does not tell me an active plan. She denies any illicit drug use. She denies acute medical needs. PFSH Past Medical History Anxiety: Yes Diminished Hearing: No Psychiatric: Yes (schizoaffective d/o) Immunizations Current: Yes Schizophrenia: Yes (schizoaffective) ?: Not LMP: JUNE 2017 Menopausal: No : 4 Para: 0 Miscarriage: 4 Social History Alcohol Use: Yes (socially ) Tobacco Use: No Substance Use: No Allergies-Medications (Allergen,Severity, Reaction): Coded Allergies: No Known Allergies (Verified Allergy, Unknown, 04/05/17) Per Patient Reported Meds & Prescriptions Reported Meds & Active Scripts Active Vistaril (Hydroxyzine Pamoate) 50 Mg Cap 50 Mg PO BID 14 Days Reported Trazodone (Trazodone HCl) 50 Mg Tab 50 Mg PO HS Prozac (Fluoxetine HCl) 10 Mg Cap 10 Mg PO DAILY Review of Systems Except as stated in HPI: all other systems reviewed are Neg Physical Exam Narrative GENERAL: Well-nourished female patient, no acute distress SKIN: Focused skin assessment warm/dry. HEAD: Atraumatic. Normocephalic. EYES: Pupils equal and round. No scleral icterus. No injection or drainage. ENT: No nasal bleeding or discharge. Mucous membranes pink and moist. NECK: Trachea midline. No JVD. CARDIOVASCULAR: Regular rate and rhythm. No murmur appreciated. RESPIRATORY: No accessory muscle use. Clear to auscultation. Breath sounds equal bilaterally. GASTROINTESTINAL: Abdomen soft, non-tender, nondistended. Hepatic and splenic margins not palpable. MUSCULOSKELETAL: No obvious deformities. No clubbing. No cyanosis. No edema. NEUROLOGICAL: Awake and alert. No obvious cranial nerve deficits. Motor grossly within normal limits. Normal speech. Data Data Last Documented VS Vital Signs Date Time Temp Pulse Resp B/P (MAP) Pulse Ox O2 Delivery O2 Flow Rate FiO2 07/14/17 14:30 98.6 73 18 131/74 (93) 100 Room Air Orders Orders Psych Screen (07/14/17 14:38) Diet Regular Basic (07/14/17 Dinner) MDM Medical Decision Making Medical Screen Exam Complete: Yes Emergency Medical Condition: Yes Medical Record Reviewed: Yes Differential Diagnosis Mood disorder versus personality disorder versus adjustment reaction disorder versus substance abuse Narrative Course 31-year-old female presents emergency department for psychiatric evaluation. Patient appears without distress. Vital signs are stable. Patient was here earlier and left AGAINST MEDICAL ADVICE. Lab work was done at that time. It has been reviewed and is without acute concern. Patient is medically cleared to undergo psychiatric screening for further evaluation and disposition. Mental health screening discussed with the patient. Psychiatric screen ordered. Diagnosis Primary Impression: Medical clearance for psychiatric admission Condition: Stable Nicole Tinoco Jul 14, 2017 14:39
--- NOTE | 2017-07-14 17:29 | PD ---
History of Present Illness Chief Complaint: Psychiatric Symptoms Time Seen by Provider: 16:50 Travel History International Travel<30 Days: No Contact w/Intl Traveler<30days: No Known affected area: No Legal Status Legal Status: Voluntary History of Present Illness: This is a 31-year-old single, -Thai female who presents voluntarily to the emergency department with self reported suicidal ideation. Patient was seen previously in this facility on April 05 of this year with a similar complaint. This time as with the last time patient has recently found herself homeless. Reviewed electronic medical record, labs, discuss case with staff. Patient was evaluated in her room and J pod with MARISSA Moya present. Patient was found awake, alert, and oriented 4. Her speech is clear, logical, and organized. It is of normal darlene and rhythm. She endorses suicidal ideation however she is rather vague as to a plan. She states that she recently committed suicide and reports, "I think it was like either a couple days ago and maybe a month ago ". I find it very curious that she does is not more concrete on a timeline if she truly was suicidal. When asked by what means she attempted suicide "a couple of days ago" she reports that she cut herself on her wrists. When the patient indicates her wrists there are no hargrove, lacerations, or scars visible. She denies homicidal ideation as well as auditory or visual hallucinations. I can elicit no delusional material nor indications of hypomania. When asked what brought her and patient responded, "I have been off my medication for a while proximally a month now and I started freaking out again". When asked to elaborate on "freaking out" patient responded, "I yell at people and I mean to them". She reports that she had been living with her parents up until about 2 weeks ago when she had an altercation with them that led to her being evicted from the house. She then reports that she stayed with her friend until 2 days ago when she had an altercation with her friend and was asked to leave there as well. She reports that she is unemployed since "I got sick at work". When asked to elaborate she states that she "went to mental" and was fired. She states that she has been "unable to work since then". At her last visit with this facility she reported to the nurse practitioner that she was actively seeking disability for mental illness. She reports having associates degree from [employer] for physical therapy. She states that her parents are exasperated with her due to her inability to keep a job for longer than a week. She reports that she was treated at [facility], in [facility], where she was diagnosed with schizophrenia. She states that she was medicated with Prozac, trazodone, and citalopram. However, she reports that she lost these medications recently. Her timeline and facts are very vague. PFSH Past Medical History Anxiety: Yes Diminished Hearing: No Psychiatric: Yes (schizoaffective d/o) Immunizations Current: Yes Schizophrenia: Yes (schizoaffective) ?: Not LMP: JUNE 2017 Menopausal: No : 4 Para: 0 Miscarriage: 4 Psychiatric History Psychiatric History Patient reports being treated at [facility] in [facility] where she claims to have been diagnosed with schizophrenia. She states that she was medicated with Prozac, trazodone, and citalopram. However she reports that she only ran out of the medications recently due to "losing them" but told the nurse she was last seen 7 months ago. Hx Psychiatric Treatment: Reports treatmetn at [facility] with last appointmetn 7 months ago. Also reports Ed visitto [facility] 6 months ago. No previous suicide attempt. History of Inpatient Treatment: Yes Guns or firearms in home: No Social History Recently kicked out of her parent's home and even more recently her friend's home. Hx Alcohol Use: Yes (socially ) Hx Tobacco Use: No Hx Substance Use: No Substance Use Type: Marijuana (Patient claims this was secondhand smoke) Other Substances Used: occasional wine or beer Hx of Substance Use Treatment: No Allergies-Medications (Allergen,Severity, Reaction): Coded Allergies: No Known Allergies (Verified Allergy, Unknown, 04/05/17) Per Patient Reported Meds & Prescriptions Reported Meds & Active Scripts Active Vistaril (Hydroxyzine Pamoate) 50 Mg Cap 50 Mg PO BID 14 Days Reported Trazodone (Trazodone HCl) 50 Mg Tab 50 Mg PO HS Prozac (Fluoxetine HCl) 10 Mg Cap 10 Mg PO DAILY Review of Systems Except as stated in HPI: all other systems reviewed are Neg MDM Medical Decision Making Medical Record Reviewed: Yes Assessment/Plan This is a 31-year-old single, -Thai female who reports voluntarily to this facility for suicidal ideation. Upon examination patient is awake, alert, and oriented 4. Her speech is clear, logical, and organized. She is in no apparent distress. There is no indication of internal stimulation nor is there any evidence of thought blocking. She endorses suicidal ideation however does not have a plan. She denies homicidal ideation, auditory or visual hallucinations. She reports that she has recently had trouble falling and staying asleep however her appetite has been good. Throughout the interview she is euthymic and smiling. She is future oriented as if she expresses a desire to get a job. At this time it appears she is seeking jail and the symptoms she describe her more behavioral in nature, i.e. lashing out at people when she is upset with them. It does not appear she would benefit from inpatient admission and does not meet criteria at this time. I discussed with her the importance of establishing outpatient. She will be provided with information for the [facility] for jail and referred to [facility] outpatient services for mental health. She will be advised to return should she become suicidal. Orders Orders Psych Screen (07/14/17 14:38) Diet Regular Basic (07/14/17 Dinner) Ed Discharge Order (07/14/17 17:11) Results Vital Signs Date Time Temp Pulse Resp B/P (MAP) Pulse Ox O2 Delivery O2 Flow Rate FiO2 07/14/17 14:30 98.6 73 18 131/74 (93) 100 Room Air 07/14/17 14:27 98.0 74 18 147/61 (89) 99 Diagnosis Primary Impression: Adjustment disorder Additional Impression: Medical clearance for psychiatric admission Psychiatrically Cleared: Yes Referrals: [facility] (Out patient) Med/ Other Pt Specific Info: No Change to Meds Disposition: 01 DISCHARGE HOME Condition: Stable Problem Qualifiers Kathryn Colon Jul 14, 2017 17:29
[2017-07-14 18:06] VITALS: BP 119/62; PULSE 80; RESP 18; O2SAT 100
== END 2017-07-14 18:23 | disposition home or self-care (01) ==
LOC: NEPJ 14:24
DX: Z02.89 Encounter for other administrative examinations (principal); F43.20 Adjustment disorder, unspecified; F25.9 Schizoaffective disorder, unspecified; F31.9 Bipolar disorder, unspecified
CPT/HCPCS: 99283